=== PATIENT | female | born 2000 | race Caucasian/White ===

== ENCOUNTER 2023-04-26 18:28 | Outpatient (CLI) | payer OTHER ==
--- NOTE | 2023-04-27 08:08 | XRAY Report ---
PROCEDURE: Ankle 3 View LT INDICATIONS: PAIN IN LEFT ANKLE TECHNIQUE: 3 views of the ankle were acquired. COMPARISON: None. FINDINGS: Bones: No fractures or dislocations. Accessory ossicle versus sequela of prior trauma at the medial malleolus. Ankle mortise is normally aligned. No suspicious bony lesions. Soft tissues: No tibiotalar joint effusion. Achilles tendon appears normal. IMPRESSION: No acute bony abnormality. If pain persists with conservative management, consider repeat x-ray in 10 -14 days or cross-sectional imaging. Reviewed by: Jairo Chapman MD on 04/27/2023 8:07 AM [facility] Approved by: Jairo Chapman MD on 04/27/2023 8:07 AM [facility] Station ID: [id number]
== END 2023-04-26 18:29 | disposition home or self-care (01) ==
LOC: DI 18:28
PROVIDERS: ATTEND Physician Assistant Medical
DX: M25.572 Pain in left ankle and joints of left foot (principal)

== ENCOUNTER 2023-09-29 07:30 | Outpatient (CLI) | payer OTHER ==
[2023-09-29 12:10] LABS: BASOPHILS % (AUTO) 0.4 %; EOSINOPHILS # (AUTO) 0.1 10^3/uL (0.0-0.7); EOSINOPHILS % (AUTO) 1.2 %; HCT - HEMATOCRIT 41.7 % (37.0-47.0); LYMPHOCYTES # (AUTO) 2.5 10^3/uL (1.5-3.5); LYMPHOCYTES % (AUTO) 37.6 %; MEAN CORPUSCULAR HEMOGLOBIN 27.8 pg (27.0-31.0); MEAN CORPUSCULAR HGB CONC 31.2 g/dL (32.0-36.0); MEAN CORPUSCULAR VOLUME 89.1 fL (81.0-99.0); MONOCYTES # (AUTO) 0.6 10^3/uL (0.0-1.0); MONOCYTES % (AUTO) 8.3 %; NEUTROPHILS # (AUTO) 3.5 10^3/uL (1.5-6.6); NEUTROPHILS % (AUTO) 52.4 %; PLT - PLATELET COUNT 349 10^3/uL (130-450); RED BLOOD COUNT 4.68 10^6/uL (4.20-5.40); RED CELL DISTRIBUTION WIDTH 12.8 % (12.0-15.0); WHITE BLOOD COUNT 6.7 x10^3/uL (4.8-10.8)
[2023-09-29 12:41] LABS: THYROID STIMULATING HORMONE 1.89 uIU/mL (0.34-5.60)
[2023-09-29 12:44] LABS: ALBUMIN 4.5 g/dL (3.2-5.5); ALBUMIN/GLOBULIN RATIO 1.5 (1.0-2.2); ALKALINE PHOSPHATASE 70 IU/L (42-121); ALT ALANINE AMINOTRANSFERASE 12 IU/L (10-60); AST ASPARTATE AMINOTRANSFERASE 11 IU/L (10-42); BILIRUBIN,TOTAL 0.5 mg/dL (0.2-1.0); BUN - BLOOD UREA NITROGEN 13 mg/dL (6-20); CALCIUM 9.9 mg/dL (8.5-10.3); CARBON DIOXIDE - CO2 28 mmol/L (21-32); CHLORIDE 105 mmol/L (101-111); CHOL/HDL RATIO 4.1 (<4.4); CHOLESTEROL 152 mg/dL; CREATININE 0.7 mg/dL (0.6-1.3); GFR - MDRD 102 (>89); GLUCOSE 84 mg/dL (74-104); HDL CHOLESTEROL 37 mg/dL; LDL CHOLESTEROL,CALCULATED 95 mg/dL; LDL/HDL RATIO 2.6 (<4.4); POTASSIUM 4.6 mmol/L (3.5-4.5); SODIUM 137 mmol/L (135-145); TOTAL PROTEIN 7.6 g/dL (6.4-8.9); TRIGLYCERIDES 102 mg/dL (48-352); VLDL CHOLESTEROL 20 mg/dL
== END 2023-09-29 07:45 | disposition home or self-care (01) ==
LOC: LAB.N 07:30
PROVIDERS: ATTEND Physician Assistant
DX: Z00.00 Encounter for general adult medical examination without abnormal findings (principal); Z82.49 Family history of ischemic heart disease and other diseases of the circulatory system
CPT/HCPCS: 36415; 80053; 80061; 83721; 84443; 85025

== ENCOUNTER 2023-11-21 08:01 | Outpatient (CLI) | payer OTHER | END 2023-11-21 08:02 | disposition home or self-care (01) | LOC: DI 08:01 | PROVIDERS: ATTEND Physician Assistant | DX: Z82.49 Family history of ischemic heart disease and other diseases of the circulatory system (principal); Z84.89 Family history of other specified conditions | CPT/HCPCS: 93307 ==